=== PATIENT | male | born 1965 | race Caucasian/White ===

== ENCOUNTER 2019-09-29 16:11 | Emergency (ER) | payer OTHER ==
[~2019-09-29] VITALS: Ht 177.8 cm; Wt 83.9 kg
[~2019-09-29 16:11] MED LIST: ACETAMINOPHEN-1 EAC1 PO; ALEVE220 M1 PO; ALEVE220 MG PO; AMOXICILLIN 50500 M1 PO; AMOXICILLIN 50500 MG PO; ANAPROX DS550 MG PO; ATIVAN1 MG PO; AUGMENTIN 875875 MG PO; BACTRIM DS TAB1 EACH PO; CEPHALEXIN 500500 M3 PO; CHLORDIAZEPOXID25 M1 PO; CLONAZEPAM 0.50.5 M1 PO; DOXYCYCLINE 10100 MG PO; FLEXERIL PO; HYDROCODON-ACE1 EAC7 PO; HYDROCODONE-AP1 EAC6 PO; IBUPROFEN 200200 M1 PO; IBUPROFEN 400400 M1 PO; IBUPROFEN 800800 M1 PO; IBUPROFEN 800800 MG PO; LEVAQUIN 500 M500 MG PO; LIDOCAINE VISC100 M1 SWISH&SPIT; MEDROLDOSEPACK PO; NAPROSYN500 MG PO; NEURONTIN 400M400 M2 PO; NOHOMEMEDICATIONS; NORCO 5-325 TA1 EAC1 PO; NORCO 5-325 TA1 EACH PO; NORCO 7.5-3251 EACH PO; NORFLEX100 MG PO; ONDANSETRON HCL4 M2 PO; OXYCODONE HCL 55 MG PO; PENICILLIN V P500 MG PO; PENICILLIN VK500 MG PO; PERCOCET PO; PREDNISONE 20 M20 M1 PO; SKELAXIN 800 M800 M1 PO; TESSALON PERLE100 MG PO; TRAMADOL 50 MG50 MG PO; TRINATE TABLET1 TAB PO; ULTRAM 50MG TAB50 MG PO; VEETIDS 250MG250 M1 PO; VENTOLIN HFA 1818 GM INH; VENTOLIN HFA INH8 GM IH; VENTOLIN HFA INH8 GM INH; VICODIN 5-5001 EACH PO; VITAMIN B-1100 M1 PO; ZOFRAN ODT4 MG PO; ZOFRAN4 MG PO; ZPAK PO; [UNRECOGNIZED DRUG - OTHER] PO
[2019-09-29 17:03] LABS: ABSOLUTE BASOPHILS 0.1 thou/uL (0.0-0.2); ABSOLUTE LYMPHOCYTES 0.9 thou/uL (0.8-5.3); ABSOLUTE MONOCYTES 0.4 thou/uL (0.0-1.2); ABSOLUTE NEUTROPHILS 6.1 thou/uL (1.6-8.1); BASOPHILS 0.9 %; EOSINOPHILS 0.3 %; HEMOGLOBIN 14.7 gm/dL (14.0-18.0); LYMPHOCYTES 11.6 %; MCH 35.6 pg (26.0-34.0); MCV 101.6 fL (80.0-100.0); MPV 7.6 fl. (7.2-11.1); NUCLEATED RBCS 0 /100WBC; PLATELET COUNT* 179 thou/uL (150-400); POLYS 82.2 %; RBC 4.13 mil/uL (4.50-6.00); RDW-CV 14.9 % (10.5-14.5); WBC 7.4 thou/uL (4.0-11.0)
[2019-09-29 17:16] LABS: APTT 23.5 Seconds (25.0-31.3); CALCIUM 8.6 mg/dL (8.5-10.1); CREATININE 1.4 mg/dL (0.6-1.3); POTASSIUM 4.3 mmol/L (3.5-5.1); PROTIME 10.1 Seconds (9.20-11.50)
[2019-09-29 17:41] LABS: ALBUMIN 4.7 g/dL (3.4-5.0); CK-MB MASS 2.7 ng/mL (<0.5-3.6); TOTAL BILIRUBIN 1.1 mg/dL (<0.1-1.0); TOTAL PROTEIN 8.2 g/dL (6.4-8.2)
[2019-09-29] MEDS ORDERED: ATIVAN1 M1 PO (17:55)
[2019-09-29] MEDS ORDERED: ZOFRAN ODT4 MG SUBLING (18:00)
[2019-09-29 18:16] VITALS: BP 142/70
--- NOTE | 2019-10-01 14:34 | EKG ---
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
== END 2019-09-29 18:17 | disposition home or self-care (01) ==
LOC: M.ERS 16:11
PROVIDERS: Family Medicine
DX: F10.129 Alcohol abuse with intoxication, unspecified (principal); R11.2 Nausea with vomiting, unspecified; F17.210 Nicotine dependence, cigarettes, uncomplicated; Y90.6 Blood alcohol level of 120-199 mg/100 ml